=== PATIENT | male | born 1995 | race Two or more races ===

== ENCOUNTER 2020-09-27 15:19 | Emergency (ER) | payer SELFPAY ==
[~2020-09-27] VITALS: Ht 188 cm; Wt 141.1 kg
--- NOTE | 2020-09-27 15:40 | NUR ---
Pt presents to ED with c/o midsternal palpitations and SOB x1 month. Pt reports no previous medical Hx. Pt states he took a medication for anxiety recently, but patient reports not taking any medications regularly and denies alcohol or substance use. He is unable to verify the name of the antianxiety medication he took "a while back." Pt appears cooperative with restless behavior.
--- NOTE | 2020-09-27 15:47 | Emergency Room Report ---
History of Present Illness General Chief Complaint: Palpitations Source: Patient Present Illness HPI Patient is a 25-year-old male past medical history of obesity who presents to the ER complaining of palpitations. Patient states he has had palpitations for the last 6 or 7 months. He states that when he gets them he feels very scared and anxious. He says is associated with shortness of breath. He states that he used to be a heavy drinker but stopped about the time that his palpitations started. He denies any chest pain. He denies any family history of early cardiovascular disease. He states that he was in [place] about a month ago and was started on metoprolol by Dr. Palomares which helped his symptoms but has run out. He denies any calf pain. He denies any drug use. He denies any abdominal pain, nausea or vomiting. 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 Patient History Reviewed Nursing Documentation: PMH: Agreed; PSxH: Agreed Review of Systems All Other Systems: negative except mentioned in HPI Physical Exam Vital Signs Date Time Temp Pulse Resp B/P (MAP) Pulse Ox O2 Delivery O2 Flow Rate FiO2 09/27/20 15:21 98.4 88 18 147/85 (105) 97 Sp02 EP Interpretation: reviewed, normal General Appearance: alert, GCS 15, non-toxic, mild distress - Tearful and anxious Head: normocephalic, atraumatic Eyes: bilateral eye normal inspection, bilateral eye PERRL ENT: hearing grossly normal, normal pharynx, no angioedema, normal voice Neck: full range of motion, supple/symm/no masses Respiratory: chest non-tender, lungs clear, normal breath sounds, speaking full sentences Cardiovascular #1: regular rate, rhythm, no edema Gastrointestinal: non tender, soft, overweight Rectal: deferred Genitourinary: no CVA tenderness Musculoskeletal: normal range of motion, no calf tenderness, no lower extremity edema Neurologic: outreach nurse III-XII nml as tested, oriented x3 Psychiatric: no suicidal/homicidal ideation Skin: no rash Lymphatic: no adenopathy Medical Decision Making Diagnostic Impression: Primary Impression: Palpitations Additional Impression: Anxiety attack ER Course Patient presents with with telemetry palpitations due to anxiety. Patient given Ativan which she states improved his symptoms. Patient's labs demonstrate no significant acute abnormalities. Specifically patient's troponin is negative, thyroid panel is normal and D-dimer is negative. Patient's chest x-ray demonstrates no acute cardiopulmonary pathology. Patient's EKG is no ST elevation. Patient was on a desk monitor throughout his ER stay and had no arrhythmias. Patient advised to follow-up with his doctor for cardiology referral for Zio patch or Holter monitoring. After discussing risks and benefits of further diagnostics, treatment plans, as well as indications for and risks of admission, the patient is agreeable to being discharged home. I have explained that their evaluation and treatment in the emergency department today is an important step towards them achieving better health but that their evaluation today is not intended to replace further evaluation and treatment by a physician in their local clinic. I have explained that while the current findings suggest no immediate life threatening emergency they will require further evaluation and treatment by a physician of their choice in their area. They understand that it will be necessary for them to review the final reports of their ED visit with their clinic physician. We have reviewed indications for return to the Emergency Department. I have explained that additional time may need to pass and/or additional testing as an outpatient may be necessary before a definitive diagnosis can be made. They tell me they are willing to follow up as instructed within the timeframe I recommend. They appear to understand what we discussed. Additionally they understand that if they are unable to be seen by an outpatient physician they are welcome, and in fact should, return to the Emergency Department for a repeat evaluation. The patient is stable at time of discharge. EKG Diagnostic Results Troponin ordered: Yes When was troponin ordered?: Sep 27, 2020 EKG Time: 14:34 EP Interpretation: Nayeli Mckenna MD Rate: normal - 93 bpm Rhythm: NSR ST Segments: no acute changes ASA given to the pt in ED: No Rhythm Strip Diag. Results Rhythm Strip Time: 15:47 EP Interpretation: yes - Nayeli Mckenna MD Rate: 88 bpm Rhythm: NSR, no PVC's, no ectopy Chest X-Ray Diagnostic Results Chest X-Ray Diagnostic Results : Chest X-Ray Ordered: Yes # of Views/Limited/Complete: 1 View Indication: Other - Palpitations EP Interpretation: Yes Interpretation: no consolidation, no effusion, no pneumothorax, no acute cardiopulmonary disease Impression: No acute disease Electronically Signed by: Nayeli Mckenna MD Last Vital Signs Date Time Temp Pulse Resp B/P (MAP) Pulse Ox O2 Delivery O2 Flow Rate FiO2 09/27/20 15:21 98.4 88 18 147/85 (105) 97 Disposition: HOME, SELF-CARE Condition: Stable Scripts Alprazolam* (XANAX*) 0.25 Mg Tablet 0.5 MG ORAL TID PRN for For Anxiety, #20 TAB Prov: Nayeli Mckenna M.D. 09/27/20 Additional Instructions: The patient was provided with discharge instructions, notified to follow-up with a primary care doctor and or specialist in the next 24-48 hours, and to return to the ED if they have worsening of their symptoms. Please note that this report is being documented using [employer] technology. This can lead to erroneous entry secondary to incorrect interpretation by the dictating instrument. Nayeli Mckenna M.D. Sep 27, 2020 15:47
[2020-09-27 15:58] LABS: BASOPHILS % (AUTO) 1.6 % (0.0-2.0); EOSINOPHILS % (AUTO) 2.4 % (0.0-3.0); HEMATOCRIT 50.2 % (42.0-52.0); HEMOGLOBIN 16.6 G/DL (14.2-18.0); LYMPHOCYTES % (AUTO) 17.9 % (20.0-45.0); MEAN CORPUSCULAR VOLUME 92 FL (80-99); MONOCYTES % (AUTO) 7.8 % (1.0-10.0); NEUTROPHILS % (AUTO) 70.3 % (45.0-75.0); PLATELET COUNT 224 K/UL (150-450); RED BLOOD COUNT 5.47 M/UL (4.70-6.10); RED CELL DISTRIBUTION WIDTH 12.6 % (11.6-14.8); WHITE BLOOD COUNT 11.4 K/UL (4.8-10.8)
[2020-09-27] MEDS ORDERED: LORazepam Inj 2mg/ml 1ml IV ONE (16:00)
[2020-09-27 16:07] LABS: ANION GAP 11 mmol/L (5-15); BLOOD UREA NITROGEN 11 mg/dL (7-18); CALCIUM 9.2 MG/DL (8.5-10.1); CARBON DIOXIDE 27 MMOL/L (21-32); CHLORIDE 101 MMOL/L (98-107); CREATININE 0.9 MG/DL (0.55-1.30); POTASSIUM 3.4 MMOL/L (3.5-5.1); SODIUM 139 MMOL/L (136-145)
[2020-09-27 16:11] LABS: ALANINE AMINOTRANSFERASE 44 U/L (12-78); ALBUMIN 4.5 G/DL (3.4-5.0); ALBUMIN/GLOBULIN RATIO 1.1 (1.0-2.7); ALKALINE PHOSPHATASE 70 U/L (46-116); ASPARTATE AMINO TRANSFERASE 28 U/L (15-37); BILIRUBIN,TOTAL 0.6 MG/DL (0.2-1.0)
[2020-09-27] MEDS ORDERED: ALPRAZOLAM0.25 MG ORAL (16:40)
--- NOTE | 2020-09-27 16:45 | Diagnostic Imaging Report ---
Indication: Chest pain Technique: XRAY Chest 1v Comparison: None Findings: Heart size and mediastinal contours are within normal limits for AP technique. There is no focal airspace consolidation, pneumothorax or pleural effusion. Osseous structures demonstrate no acute abnormality. Impression: No radiographic evidence of acute cardiopulmonary disease.
[2020-09-27 16:49] VITALS: BP 125/57
--- NOTE | 2020-09-27 16:49 | NUR ---
ED Nurse Note: Pt cleared by health care Provider for discharge. DC instructions/prescription was given and explained to pt and verbalized understanding of teachings. All medical deviecs such as ID band removed. Pt is AAO x4, ambulatory and left with all personal belongings.
--- NOTE | 2020-09-28 12:02 | Cardiology Report ---
APPROVED REPORT EKG Measurement Heart [id number] <Conclusion> Normal sinus rhythm Normal ECG
== END 2020-09-27 16:50 | disposition home or self-care (01) ==
LOC: EMR 16:22
DX: F41.9 Anxiety disorder, unspecified (principal); E66.3 Overweight; Z68.39 Body mass index [BMI] 39.0-39.9, adult
CPT/HCPCS: 36415; 71045; 80053; 80307; 83735; 84439; 84443; 84484; 85025; 85379; 93005; 96361; 96374; 99284; J7030